=== PATIENT | female | born 1980 | race Caucasian/White ===

== ENCOUNTER → 2019-07-18 09:54 | Outpatient (BNVA) | payer OTHER, SELFPAY | PROVIDERS: Family Provider Nurse Practitioner Family; Referring Provider Nurse Practitioner Family; Visit Provider Internal Medicine Rheumatology | DX: M06.00 Rheumatoid arthritis without rheumatoid factor, unspecified site (principal); Z79.899 Other long term (current) drug therapy; Z79.52 Long term (current) use of systemic steroids; D50.9 Iron deficiency anemia, unspecified | CPT/HCPCS: 99214 ==

== ENCOUNTER → 2019-07-18 11:16 | Outpatient (BNVA) | payer OTHER, SELFPAY | PROVIDERS: Family Provider Nurse Practitioner Family; Referring Provider Nurse Practitioner Family; Visit Provider Internal Medicine Rheumatology | DX: Z79.899 Other long term (current) drug therapy (principal); M19.90 Unspecified osteoarthritis, unspecified site; Z79.52 Long term (current) use of systemic steroids | CPT/HCPCS: 85025 ==

== ENCOUNTER 2019-07-18 11:41 | Outpatient (CLI) | payer OTHER, SELFPAY ==
--- NOTE | 2019-07-18 11:54 | XR_ITS ---
WS: [id number] PROCEDURE: XR chest 2V* 20357 CLINICAL INFORMATION: inflammatory arthritis COMPARISON: None. FINDINGS: Heart: Normal cardiac silhouette. Lungs: Lungs are clear. No consolidation or pleural fluid. Bones: Normal visualized bony structures. Cholecystectomy clips. XR/XR chest 2V* 10327 IMPRESSION: Normal chest
== END 2019-07-18 11:42 | disposition home or self-care (01) ==
LOC: RADOUTREAD 11:47
PROVIDERS: Family Provider Nurse Practitioner Family; PCP Nurse Practitioner Family; Visit Provider Internal Medicine Rheumatology
DX: M19.90 Unspecified osteoarthritis, unspecified site (principal); Z79.899 Other long term (current) drug therapy
CPT/HCPCS: 36415; 71046; 80061; 80076; 82306; 82565; 85651; 86140

== ENCOUNTER → 2019-07-25 08:43 | Outpatient (BNVA) | payer OTHER, SELFPAY | PROVIDERS: Family Provider Nurse Practitioner Family; PCP Nurse Practitioner Family; Visit Provider Internal Medicine Rheumatology | DX: M19.90 Unspecified osteoarthritis, unspecified site (principal); Z11.1 Encounter for screening for respiratory tuberculosis; Z11.59 Encounter for screening for other viral diseases; Z79.899 Other long term (current) drug therapy; L40.50 Arthropathic psoriasis, unspecified | CPT/HCPCS: 36415; 86480; 86704; 86803; 87340 ==

== ENCOUNTER → 2019-08-02 13:05 | Outpatient (BNVA) | payer OTHER, SELFPAY | PROVIDERS: Family Provider Nurse Practitioner Family; PCP Internal Medicine Rheumatology; Visit Provider Internal Medicine Rheumatology | DX: R76.8 Other specified abnormal immunological findings in serum (principal); Z11.59 Encounter for screening for other viral diseases | CPT/HCPCS: 36415; 86803; 87902 ==

== ENCOUNTER → 2019-10-19 10:31 | Outpatient (BNVA) | payer OTHER, SELFPAY | PROVIDERS: Family Provider Nurse Practitioner Family; PCP Internal Medicine Rheumatology; Visit Provider Internal Medicine Rheumatology | DX: M19.90 Unspecified osteoarthritis, unspecified site (principal); Z79.899 Other long term (current) drug therapy; D50.0 Iron deficiency anemia secondary to blood loss (chronic); R76.8 Other specified abnormal immunological findings in serum; Z79.52 Long term (current) use of systemic steroids | CPT/HCPCS: 36415; 80076; 82565; 85025; 85651; 86140 ==

== ENCOUNTER → 2019-12-08 11:16 | Outpatient (BNVA) | payer OTHER, SELFPAY | PROVIDERS: Family Provider Nurse Practitioner Family; PCP Internal Medicine Rheumatology; Visit Provider Internal Medicine Rheumatology | DX: M19.90 Unspecified osteoarthritis, unspecified site (principal); Z79.899 Other long term (current) drug therapy | CPT/HCPCS: 36415; 80076; 82565; 85025; 85651; 86140 ==

== ENCOUNTER → 2020-01-04 14:52 | Outpatient (BNVA) | payer OTHER, SELFPAY | PROVIDERS: Family Provider Nurse Practitioner Family; PCP Internal Medicine Rheumatology; Visit Provider Internal Medicine Rheumatology | DX: M05.9 Rheumatoid arthritis with rheumatoid factor, unspecified (principal); R76.8 Other specified abnormal immunological findings in serum; Z79.52 Long term (current) use of systemic steroids; Z71.89 Other specified counseling; Z79.899 Other long term (current) drug therapy | CPT/HCPCS: 99214 ==

== ENCOUNTER → 2020-03-29 12:47 | Outpatient (BNVA) | payer OTHER, SELFPAY | PROVIDERS: Family Provider Nurse Practitioner Family; PCP Internal Medicine Rheumatology; Visit Provider Internal Medicine Rheumatology | DX: Z79.899 Other long term (current) drug therapy (principal) | CPT/HCPCS: 36415; 80076; 82565; 85025; 85651; 86140 ==

== ENCOUNTER → 2020-04-05 13:06 | Outpatient (BNVA) | payer OTHER, SELFPAY | PROVIDERS: Family Provider Nurse Practitioner Family; PCP Internal Medicine Rheumatology; Visit Provider Internal Medicine Rheumatology | DX: M19.90 Unspecified osteoarthritis, unspecified site (principal); R76.8 Other specified abnormal immunological findings in serum; Z79.52 Long term (current) use of systemic steroids; Z79.899 Other long term (current) drug therapy; D50.9 Iron deficiency anemia, unspecified | CPT/HCPCS: 99214 ==

== ENCOUNTER → 2020-05-11 09:32 | Outpatient (BNVA) | payer OTHER, SELFPAY | PROVIDERS: Family Provider Nurse Practitioner Family; PCP Internal Medicine Rheumatology | DX: Z79.899 Other long term (current) drug therapy (principal) | CPT/HCPCS: 36415; 80076; 82565; 85025; 85651; 86140 ==

== ENCOUNTER → 2020-09-13 11:55 | Outpatient (BNVA) | payer OTHER, SELFPAY | PROVIDERS: Family Provider Nurse Practitioner Family; PCP Nurse Practitioner Family; Visit Provider Internal Medicine Rheumatology | DX: R76.8 Other specified abnormal immunological findings in serum (principal); M19.90 Unspecified osteoarthritis, unspecified site; Z79.899 Other long term (current) drug therapy; Z79.52 Long term (current) use of systemic steroids; Z87.891 Personal history of nicotine dependence | CPT/HCPCS: 99214 ==

== ENCOUNTER → 2020-12-03 10:56 | Outpatient (BNVA) | payer OTHER, SELFPAY | PROVIDERS: Family Provider Nurse Practitioner Family; PCP Nurse Practitioner Family; Visit Provider Internal Medicine Rheumatology | DX: M19.90 Unspecified osteoarthritis, unspecified site (principal); Z79.899 Other long term (current) drug therapy | CPT/HCPCS: 36415; 80076; 82565; 85025; 86140 ==

== ENCOUNTER → 2020-12-17 10:47 | Outpatient (BNVA) | payer OTHER, SELFPAY | PROVIDERS: Family Provider Nurse Practitioner Family; PCP Nurse Practitioner Family; Visit Provider Internal Medicine Rheumatology | DX: R76.8 Other specified abnormal immunological findings in serum (principal); M19.90 Unspecified osteoarthritis, unspecified site; Z79.899 Other long term (current) drug therapy; Z79.52 Long term (current) use of systemic steroids; Z87.891 Personal history of nicotine dependence | CPT/HCPCS: 99214 ==

== ENCOUNTER → 2021-02-20 10:41 | Outpatient (BNVA) | payer OTHER, SELFPAY | PROVIDERS: Family Provider Nurse Practitioner Family; PCP Nurse Practitioner Family; Visit Provider Internal Medicine | DX: M19.90 Unspecified osteoarthritis, unspecified site (principal); R76.8 Other specified abnormal immunological findings in serum; Z71.89 Other specified counseling; Z79.899 Other long term (current) drug therapy | CPT/HCPCS: 36415; 80076; 82565; 85025; 86140 ==

== ENCOUNTER → 2021-05-21 09:34 | Outpatient (BNVA) | payer OTHER, SELFPAY | PROVIDERS: Family Provider Nurse Practitioner Family; PCP Nurse Practitioner Family; Visit Provider Internal Medicine Rheumatology | DX: M19.90 Unspecified osteoarthritis, unspecified site (principal); Z79.899 Other long term (current) drug therapy; M06.09 Rheumatoid arthritis without rheumatoid factor, multiple sites | CPT/HCPCS: 36415; 80076; 82565; 85025; 86140 ==

== ENCOUNTER → 2021-05-23 15:01 | Outpatient (BNVA) | payer OTHER, SELFPAY | PROVIDERS: Family Provider Nurse Practitioner Family; PCP Nurse Practitioner Family; Referring Provider Nurse Practitioner Family; Visit Provider Obstetrics & Gynecology | DX: N93.9 Abnormal uterine and vaginal bleeding, unspecified (principal) | CPT/HCPCS: 83036; 83525; 84443; 88305 ==

== ENCOUNTER → 2021-06-03 08:13 | Outpatient (BNVA) | payer OTHER, SELFPAY | PROVIDERS: Family Provider Nurse Practitioner Family; PCP Nurse Practitioner Family; Visit Provider Obstetrics & Gynecology | DX: N85.8 Other specified noninflammatory disorders of uterus (principal); N85.2 Hypertrophy of uterus | CPT/HCPCS: 76830 ==

== ENCOUNTER 2021-12-03 13:57 | Observation (INO) | payer OTHER, SELFPAY ==
[2021-12-02 12:08] VITALS: BMI 40.3
[2021-12-03] VITALS (23 sets, daily range): BP systolic 115–165; BP diastolic 72–97; PULSE 63–85; RESP 15–19; TEMP 36.1–37.2; O2SAT 90–99
[2021-12-03] MEDS: phenazopyridine 100 mg Tablet 200 MG PO ×3 (09:39→21:03)
[2021-12-03] MEDS: acetaminophen 1,000 MG/100 ML PIGGYBACK 400 MG IV (09:40)
[2021-12-03] MEDS: sodium chloride 0.9% 1,000 ML 30 ML IV (09:40)
[2021-12-03] MEDS: gabapentin 300 mg Capsule PO (09:45)
[2021-12-03] MEDS: scopolamine 1.5 Patch 1 PATCH TRANSDERMA (09:46)
--- NOTE | 2021-12-03 09:48 | ANES.PREANE2 ---
Pre-Anesthetic Assessment Height/Weight: Height 1.63 m Weight 106.594 kg Temp Pulse Resp BP Pulse Ox 97 F L 79 16 151/95 99 12/03/21 08:51 12/03/21 08:51 12/03/21 08:51 12/03/21 08:51 12/03/21 08:51 Preop Diagnosis: AUB, uterine leiomyoma Operation Date: 12/03/21 10:00 Proposed Procedures p Laparoscopic Assist Vaginal Hysterectomy 85600/D25.9(Not Applicable) - Prema Berry MD s Laparoscopic Salpingectomy(Bilateral) - Prema Berry MD Familial anesthetic complications: None Was Beta Carol taken within 24 hours: N/A Was Clonidine taken within 24 hours: N/A Last intake: Intake Last Liquid Date 12/02/21 Last Liquid Time 21:30 Last Solid Date 12/02/21 Last Solid Time 18:30 Social No alcohol and No tobacco Exam alert, oriented x 3, clear to auscultation bilaterally and regular rate & rhythm Airway Mallampati: Class I Dentition: full Pulmonary Asthma (hasn't required inhalers for 6 months) CV/HEM Hypertension GI Gastroesophageal Reflux Disease Metabolic hx adeola's Musc/skel inflammatory arthritis Neuropsych None reported Anesthetic Plan ASA status: 2 Anesthesia: General Risk of > 500 ml blood loss (7ml/kg in children): No Medications/Allergies Home Medications Medication Instructions Recorded Confirmed Last Taken Type montelukast 10 mg tablet 10 mg PO QDAY 07/15/19 12/03/21 12/02/21 History fexofenadine 60 mg tablet (Allergy 60 mg PO BID PRN 01/04/20 12/03/21 12/02/21 History Relief (fexofenadine)) fluticasone 100 mcg-salmeterol 50 1 inh INHALATION DAILY PRN each 01/04/20 12/03/21 05/22/21 History mcg/dose blistr powdr for inhalation (Advair Diskus) prednisone 10 mg tablet See Rx Instructions PO .COMPLEX 05/21/21 12/03/21 2 Months Ago Rx PRN #30 tab ~10/03/21 [id number] 18 mg-FA 400 1 tab PO DAILY 05/23/21 12/03/21 12/02/21 History mcg-calcium 500 mg-vit K 50 mcg tablet (Women's Multivitamin) norethindrone 1 mg-ethinyl 1 tab PO DAILY 05/23/21 12/03/21 12/02/21 History estradiol 35 mcg tablet (Nortrel) omega-3 fatty acids 1,000 mg 1,000 mg PO DAILY 05/23/21 12/03/21 12/02/21 History capsule (Fish Oil Concentrate) cholecalciferol (vitamin D3) 50 50 mcg PO DAILY #30 cap 06/26/21 12/03/21 12/02/21 Rx mcg (2,000 unit) capsule hydroxychloroquine 200 mg tablet 200 mg PO BID #180 tab 06/26/21 12/03/21 12/02/21 Rx methotrexate sodium 2.5 mg tablet See Rx Instructions PO .week 90 06/26/21 12/03/21 11/28/21 Rx Days #120 tab omeprazole 40 mg capsule,delayed 40 mg PO QDAY #90 cap 06/26/21 12/03/21 12/02/21 Rx release prednisone 5 mg tablet 5 mg PO DAILY #90 tab 06/26/21 12/03/21 12/02/21 Rx lisinopril 20 mg tablet 20 mg PO QDAY tab 07/22/21 12/03/21 12/02/21 History folic acid 1 mg tablet 1 mg PO DAILY #90 tab 08/19/21 12/03/21 12/02/21 Rx nitrofurantoin 100 mg PO DAILY 12/02/21 12/03/21 12/02/21 History monohydrate/macrocrystals 100 mg capsule (Macrobid) albuterol sulfate 90 mcg/actuation 1 inh INHALATION QID PRN 12/03/21 12/03/21 05/22/21 History aerosol inhaler Allergies Allergy/AdvReac Type Severity Reaction Status Date / Time aspirin Allergy Intermediate hearing Verified 12/03/21 09:00 loss meloxicam Allergy hives Verified 12/03/21 09:00 sulfamethoxazole Allergy itching Verified 12/03/21 09:00 [From Bactrim] trimethoprim [From Bactrim] Allergy itching Verified 12/03/21 09:00 Current Medications Generic Name Dose Route Start Last Admin Trade Name Freq PRN Reason Stop Dose Admin Sodium Chloride 1,000 mls @ 30 mls/hr 12/03/21 08:45 12/03/21 09:40 Sodium Chloride 0.9% IV 12/04/21 08:44 30 mls/hr .Q24H CARMENCITA Administration PFSH Anesthesia Medical History Alopecia Carpal tunnel syndrome Current chronic use of systemic steroids Dyslipidemia Elevated antinuclear antibody (ARACELIS) level Encounter for screening for other viral diseases Essential hypertension GERD (gastroesophageal reflux disease) Adeola's disease High risk medication use Hyperlipidemia Immunization counseling Inflammatory arthritis Iron deficiency anemia Radiculopathy of lumbosacral region Regional enteritis of small intestine Seasonal allergic rhinitis Type 2 diabetes mellitus Undifferentiated connective tissue disease Urinary incontinence Vitamin D deficiency Surgical History H/O tubal ligation 2002 History of cholecystectomy History of tonsillectomy No history of previous surgery Family History Mother COPD (chronic obstructive pulmonary disease) Diabetes Grandfather Cancer Paternal-bone cancer Grandfather Cancer Maternal-prostate cancer Father Chronic kidney disease (CKD) Diabetes Hyperlipidemia Hypertension Denies family history of CAD (coronary artery disease) Clotting disorder Bleeding disorder Thyroid disease Stroke Female Reproductive History Date of last menstrual period: 11/16/21 Data Anesthesia : 12/03/21 09:20 12/03/21 09:20 Cardiac Studies: No Data to Display
[2021-12-03 09:57] LABS: Basophils # 0.1 10^3/uL (0.0-0.1); Basophils % 0.6 %; Eosinophils # 0.3 10^3/uL (0.0-0.8); Eosinophils % 3.4 %; Hematocrit 37.6 % (37.0-47.0); Lymphocytes % 23.9 %; Mean Corpuscular HGB Conc 34.6 g/dL (30.0-36.0); Mean Corpuscular Hemoglobin 33.2 pg (28.0-34.0); Mean Corpuscular Volume 96.2 fl (81-99); Mean Platelet Volume 10.6 fL (7.4-10.4); Monocytes # 0.5 10^3/uL (0.2-0.9); Monocytes % 6.3 %; Neutrophils # 5.38 10^3/uL (1.8-7.7); Neutrophils % 65.7 %; Nucleated Red Blood Cells % 0 %; Platelet Count 286 10^3/cmm (130-400); Red Blood Count 3.91 10^6/uL (4.1-5.3); White Blood Count 8.2 10^3/uL (4.0-10.0)
[2021-12-03 10:05] LABS: OR HCG Qualitative Urine Negative (Negative)
--- NOTE | 2021-12-03 10:10 | W.PM.OPSUD ---
Surgery/Procedure H&P Update DATE OF PROCEDURE: December 03, 2021 DATE H&P PERFORMED: 11/27/21 H&P UPDATE INFORMATION: I have reviewed H&P completed within last 30 days, I have examined patient prior to procedure and No changes to prior documentation PREOP DIAGNOSIS: AUB, uterine leiomyoma PLANNED PROCEDURE: Operation Date: 12/03/21 10:00 Proposed Procedures p Laparoscopic Assist Vaginal Hysterectomy 17800/D25.9(Not Applicable) - Prema Berry MD s Laparoscopic Salpingectomy(Bilateral) - Prema Berry MD Related Problem List Diagnoses (1) Uterine leiomyoma: (2) Abnormal uterine bleeding (AUB):
[2021-12-03 10:15] LABS: Anion Gap 16.3 (5-19); Blood Urea Nitrogen 13 mg/dL (6-20); Calcium 8.5 mg/dL (8.5-10.5); Carbon Dioxide 24 mmol/L (22-29); Chloride 104 mmol/L (98-107); Glomerular Filtration Rate 91.3 mL/min (90-130); Glucose 91 mg/dL (65-115); Osmolality Calculated 292 mOsm/kg (285-295); Potassium 3.3 mmol/L (3.5-5.1); Sodium 141 mmol/L (136-145)
[2021-12-03] MEDS: vasopressin 20 unit/mL INJ INJECTION (11:11)
--- NOTE | 2021-12-03 12:54 | P.OP_ITS ---
Operative Report Date of procedure: December 03, 2021 Pre-op diagnosis: Preop Diagnosis AUB, uterine leiomyoma Post-op diagnosis: same Post-op findings: Enlarged uterus with one large anterior fibroid. Normal appearing tubes and ovaries Procedure done: LAVH, bilateral salpingectomy Specimens removed/disposition: uterus, bilateral fallopian tubes to pathology Surgeon: Prema Berry Anesthesia: General Estimated blood loss (mL): 400 IV fluids (mL): 100 Urine output (mL): 800 Complications: none Findings: 10 week sized fibroid uterus, normal appearing tubes and ovaries Procedure: The patient was taken to the operating room where general anesthesia was administered and found to be adequate. She was prepped and draped in the normal sterile fashion in the dorsal lithotomy position in [facility]. A Villasenor catheter was placed. A weighted speculum was placed into the vagina and the anterior lip of the cervix was grasped with a single tooth tenaculum. The Zumi uterine manipulator was placed. The weighted speculum was removed. The gloves were changed and attention was turned to the abdomen. A 5 mm Supraumbilical incision was made. Using a 5 mm port with the camera, the port was placed into the abdomen. The abdomen was insufflated. Two low, lateral 5 mm ports were placed on the left and right under direct visualization from the camera. The right tube was grasped and elevated. Using the laparoscopic cautery, the mesosalpinx was divided between the ovary and tube. The tube was removed. This was performed the same way on the left. The uteroovarian ligaments as well as the round ligaments were ligated. Attention was then turned to the vaginal portion of the procedure. The weighted speculum was placed into the vagina. The zumi manipulator was removed. The single tooth tenaculum was removed and replaced with the michelle's tenaculum. 10 mL of dilute Pitressin was injected at the vesicovaginal junction. A circumferential incision was made at the vesicovaginal junction and the vaginal mucosa reflected cephalad. The posterior peritoneum was entered sharply with the Metzenbaum scissors and the long weighted speculum replaced. Using the Joana clamps the uterosacral ligaments were clamped cut and suture- ligated. The anterior peritoneum was entered sharply with the metzenbaum scissors. Then sequentially the uterine arteries and cardinal ligaments were clamped cut and suture-ligated. A single-tooth tenaculum was used to deliver the uterus. The remaining segement of the utero-ovarian ligaments were clamped cut and suture-ligated bilaterally and the specimen was removed. There was good hemostasis with only mild bleeding from the cuff. The peritoneum was closed with a pursestring using 2-0 Vicryl. The vaginal cuff was closed with 0 Vicryl in a running locked pattern incorporating the uterosacral ligaments into the lateral aspects of the vaginal cuff. The Villasenor catheter was removed and the cystoscope advanced into the bladder. The patient was given pyridium and bilateral spill was noted. There were no injuries or deficits noted in the bladder. The cystoscope was removed and the Villasenor was replaced. Vaginal packing was placed for good hemostasis. The gloves and gowns were changed and attention was turned to the abdomen. The ports were closed with 2-0 monocryl with skin glue. The patient tolerated the procedure well. Sponge lap and needle counts were correct x3. She was taken to the recovery room in stable condition.
[2021-12-03] MEDS: HYDROmorphone 1 mg/mL INJ 1 mL 0.5 MG IVP (13:31)
[2021-12-03] MEDS: dextrose 5%-lactated ringers 1,000 ML 125 ML IV ×2 (14:34→23:43)
[2021-12-03] MEDS: ketorolac 30 mg/mL INJ IVP ×2 (14:35→21:03)
[2021-12-03] MEDS: HYDROcodone-acetaminophen 5-325 mg Tablet PO ×2 (15:19→23:48)
[2021-12-03] MEDS: HYDROmorphone 1 mg/mL INJ 1 mL 1.5 MG IVP (18:06)
[2021-12-03] MEDS: docusate sodium 100 mg Capsule PO (18:11)
[2021-12-03] MEDS: hydroxychloroquine 200 mg Tablet PO (18:14)
[2021-12-04 00:40] VITALS: BP 115/82; PULSE 62; RESP 14; TEMP 36.9; O2SAT 94
[2021-12-04] MEDS: ketorolac 30 mg/mL INJ IVP (02:31)
[2021-12-04] MEDS: HYDROcodone-acetaminophen 5-325 mg Tablet PO (04:59)
[2021-12-04 05:13] LABS: Hematocrit 29.9 % (37.0-47.0); Hemoglobin 10.5 g/dL (11.5-15.3); Mean Corpuscular HGB Conc 35.1 g/dL (30.0-36.0); Mean Corpuscular Hemoglobin 33.8 pg (28.0-34.0); Mean Corpuscular Volume 96.1 fl (81-99); Mean Platelet Volume 10.5 fL (7.4-10.4); Platelet Count 257 10^3/cmm (130-400); Red Blood Count 3.11 10^6/uL (4.1-5.3); Red Cell Distribution Width 12.7 % (12.1-15.1); White Blood Count 10.1 10^3/uL (4.0-10.0)
[2021-12-04 06:38] VITALS: BP 120/77; PULSE 72; RESP 16; O2SAT 95
[2021-12-04 10:16] VITALS: BP 120/77; PULSE 72; RESP 16; O2SAT 95
--- NOTE | 2021-12-04 17:07 | ANE.PACU2 ---
Inpatient post-anesthesia follow up: Airway intact: Yes Vital signs: Temperature 98.4 F Pulse Rate 72 Respiratory Rate 16 Blood Pressure 120/77 Pulse Oximetry 95 Oxygen Delivery Me thod Room Air Oxygen Flow Rate 3 Fraction of Inspir ed Oxygen Hydration adequate: Yes Nausea and vomiting: No Pain level: 1 Mental status: Baseline
--- NOTE | 2021-12-05 12:44 | P.DS_ITS ---
Discharge Providers Date of Admission: 12/03/21 13:57 Date of Discharge: December 04, 2021 Attending Provider at Admission: Prema Berry MD Attending Provider at Discharge: Prema Berry MD Primary Care Provider: Ayde Yo Diagnoses at Discharge Discharge Diagnosis (1) Uterine leiomyoma: Status: Resolved (2) Abnormal uterine bleeding (AUB): Status: Resolved Hospital Course Hospital Course The patient was admitted for surgery. She did well postoperatively and was ready for discharge. Physical Exam Narrative: The patient is doing well. No concerns today. Villasenor and packing has been removed. Const: COMMON NORMALS: no acute distress, patient oriented x3, no limitations, alert and well nourished GENERAL APPEARANCE: cooperative, comfortable, well kempt and well developed ORIENTATION/CONSCIOUSNESS: Yes awake, Yes oriented to person, Yes oriented to place and Yes oriented to time Resp: COMMON NORMALS: normal respiratory effort EFFORT & INSPECTION: Yes able to speak in complete sentences GI: COMMON NORMALS: Soft to palpation and non-tender PALPATION: Yes Soft to palpation Extremity: COMMON NORMALS: no calf tenderness Neuro: COMMON NORMALS: patient oriented x3 SENSORIUM/ORIENTATION: Yes alert, Yes oriented to person, Yes oriented to place and Yes oriented to time Psych: COMMON NORMALS: mental status grossly normal, Normal thought process present, cooperative, normal affect and speech normal APPEARANCE: Yes grossly normal and Yes well kempt ATTITUDE: Yes calm and Yes engaged SPEECH: Yes normal speech THOUGHT PROCESS: Normal thought process present Urinary Catheter Management: Villasenor: Cath Placed During This Visit: yes, but has since been removed by the nurse Reason for Continuing Indwelling Catheter: Perioperative Use in Selected Surgeries Urinary Catheter Date of Insertion: 12/03/21 Urinary Catheter Time of Insertion: 10:54 Date Urinary Catheter Removed: 12/04/21 Time Urinary Catheter Discontinued: 05:10 Discharge Data Studies Completed and Pending Pending at discharge Category Date Time Status Pathology: Surgical [PTH] Routine Pth 12/03/21 13:04 Received Laboratory Results WBC 10.1 10^3/uL (4.0-10.0) H 12/04/21 05:03 RBC 3.11 10^6/uL (4.1-5.3) L 12/04/21 05:03 Hgb 10.5 g/dL (11.5-15.3) L 12/04/21 05:03 Hct 29.9 % (37.0-47.0) L 12/04/21 05:03 MCV 96.1 fl (81-99) 12/04/21 05:03 MCH 33.8 pg (28.0-34.0) 12/04/21 05:03 MCHC 35.1 g/dL (30.0-36.0) 12/04/21 05:03 RDW 12.7 % (12.1-15.1) 12/04/21 05:03 Plt Count 257 10^3/cmm (130-400) 12/04/21 05:03 MPV 10.5 fL (7.4-10.4) H 12/04/21 05:03 Neut % (Auto) 65.7 % 12/03/21 09:20 Lymph % (Auto) 23.9 % 12/03/21 09:20 [place] % (Auto) 6.3 % 12/03/21 09:20 Eos % (Auto) 3.4 % 12/03/21 09:20 Baso % (Auto) 0.6 % 12/03/21 09:20 Neut # (Auto) 5.38 10^3/uL (1.8-7.7) 12/03/21 09:20 Lymph # (Auto) 2.0 10^3/uL (0.8-4.8) 12/03/21 09:20 [place] # (Auto) 0.5 10^3/uL (0.2-0.9) 12/03/21 09:20 Eos # (Auto) 0.3 10^3/uL (0.0-0.8) 12/03/21 09:20 Baso # (Auto) 0.1 10^3/uL (0.0-0.1) 12/03/21 09:20 Nucleated RBC % (auto) 0 % 12/03/21 09:20 Nucleated RBCs # 0.0 /100WBC 12/03/21 09:20 Sodium 141 mmol/L (136-145) 12/03/21 09:20 Potassium 3.3 mmol/L (3.5-5.1) L 12/03/21 09:20 Chloride 104 mmol/L (98-107) 12/03/21 09:20 Carbon Dioxide 24 mmol/L (22-29) 12/03/21 09:20 Anion Gap 16.3 (5-19) 12/03/21 09:20 BUN 13 mg/dL (6-20) 12/03/21 09:20 Creatinine 0.7 mg/dL (0.5-0.9) 12/03/21 09:20 GFR Calculation 91.3 mL/min (90-130) 12/03/21 09:20 Glucose 91 mg/dL (65-115) 12/03/21 09:20 Calculated Osmolality 292 mOsm/kg (285-295) 12/03/21 09:20 Calcium 8.5 mg/dL (8.5-10.5) 12/03/21 09:20 Urine HCG, Qual Negative (Negative) 12/03/21 09:07 Blood Type O Positive 12/03/21 09:20 Rho(D) Type Positive 12/03/21 09:20 Antibody Screen Negative 12/03/21 09:20 Vitals Last Vital Signs Temp 98.4 F 12/04/21 00:40 Pulse 72 12/04/21 10:16 Resp 16 12/04/21 10:16 BP 120/77 12/04/21 10:16 Pulse Ox 95 12/04/21 10:16 Discharge Plan Discharge Patient Disposition: Home Condition: Stable Prescriptions: New ibuprofen 800 mg Tablet 800 mg PO Q8H Qty: 30 0RF hydrocodone-acetaminophen 5-325 mg Tablet 1 tab PO Q4H PRN (Reason: Moderate To Severe Pain) Qty: 30 0RF docusate sodium 100 mg Capsule 100 mg PO BID Qty: 60 0RF Continued montelukast 10 mg tablet 10 mg PO QDAY 0RF lisinopril 20 mg tablet 20 mg PO QDAY 0RF fluticasone propion-salmeterol [Advair Diskus] 100-50 mcg/dose blister with device 1 inh INHALATION DAILY PRN (Reason: Shortness Of Breath) 0RF fexofenadine [Allergy Relief (fexofenadine)] 60 mg tablet 60 mg PO BID PRN (Reason: allergies) 0RF cholecalciferol (vitamin D3) 50 mcg (2,000 unit) capsule 50 mcg PO DAILY Qty: 30 3RF methotrexate sodium 2.5 mg tablet See Rx Instructions PO .week 90 Days Qty: 120 0RF Rx Instructions: 8 tabs of 2.5 mg PO once a week ( take 4 tabs in the AM and 4 tabs in the PM on ) hydroxychloroquine 200 mg tablet 200 mg PO BID Qty: 180 1RF omeprazole 40 mg capsule,delayed release(DR/EC) 40 mg PO QDAY Qty: 90 1RF prednisone 5 mg tablet 5 mg PO DAILY Qty: 90 1RF prednisone 10 mg tablet See Rx Instructions PO .COMPLEX PRN (Reason: joint pain) Qty: 30 1RF Rx Instructions: 1 tab daily for 7 days or as needed for flares PO PRN; Nortrel (28) 1-35 mg-mcg tablet 1 tab PO DAILY 0RF Women's Multivitamin 18 mg-400 mcg- 500 mg-50 mcg tablet 1 tab PO DAILY 0RF omega-3 fatty acids [Fish Oil Concentrate] 1,000 mg capsule 1,000 mg PO DAILY 0RF folic acid 1 mg tablet 1 mg PO DAILY Qty: 90 3RF nitrofurantoin monohyd/m-cryst [Macrobid] 100 mg Capsule 100 mg PO DAILY 0RF albuterol sulfate 90 mcg/actuation Hfa Aerosol Inhaler 1 inh INHALATION QID PRN (Reason: Shortness Of Breath) 0RF Discharge Orders: Discharge Order (Routine); Ordered 12/04/21 Ordered By: Prema Berry Referrals: Prema Berry MD [Physician] - 12/12/21 10:15 am (1 week post-op: 12/12/21 @10:15. 6 week post-op: 01/13/22 @8:30. ) Patient Instructions: Salpingectomy (DC), Laparoscopic Hysterectomy (DC), OB Discharge Report, OB Food/Drug Interaction Guide, Opioid Safety Discharge Attestations Time Spent in Discharge Care*: less than 30 min Quality Metrics Clinical Quality Measures [ No reported AMI, CVA or VTE this stay] Coding Level of Care Code Acute Chg FW DC note Diagnoses Uterine leiomyoma D25.9 Abnormal uterine bleeding (AUB) N93.9
== END 2021-12-04 09:25 | disposition home or self-care (01) ==
LOC: OBGYN 13:57
PROVIDERS: Anesthesiology; Admitting Provider Obstetrics & Gynecology; PCP Nurse Practitioner Family; Visit Provider Obstetrics & Gynecology
PROC: 0UT9FZZ Resection of Uterus, Via Natural or Artificial Opening With Percutaneous Endoscopic Assistance (ICD-10-PCS; CPT 58552; principal; 2021-12-03 10:00)
PROC: (CPT 58661; 2021-12-03 10:00)
DX: N93.9 Abnormal uterine and vaginal bleeding, unspecified (principal); D25.9 Leiomyoma of uterus, unspecified; E78.5 Hyperlipidemia, unspecified; E11.9 Type 2 diabetes mellitus without complications; E55.9 Vitamin D deficiency, unspecified
CPT/HCPCS: 58552; 36415; 51702; 80048; 81025; 84703; 85025; 85027; 86850; 86900; 87086; 88307; G0378; J1100; J1170; J1200; J1885; J2250; J2405; J2704; J2710; J3010; J3490; J7030

== ENCOUNTER 2022-01-13 09:32 | Outpatient (CLI) | payer OTHER, SELFPAY ==
[2022-01-13 10:28] LABS: Basophils # 0.1 10^3/uL (0.0-0.1); Basophils % 0.8 %; Eosinophils # 0.4 10^3/uL (0.0-0.8); Eosinophils % 4.5 %; Hematocrit 37.2 % (37.0-47.0); Hemoglobin 12.5 g/dL (11.5-15.3); Lymphocytes # 2.4 10^3/uL (0.8-4.8); Lymphocytes % 26.4 %; Mean Corpuscular HGB Conc 33.6 g/dL (30.0-36.0); Mean Corpuscular Hemoglobin 33.5 pg (28.0-34.0); Mean Corpuscular Volume 99.7 fl (81-99); Mean Platelet Volume 10.2 fL (7.4-10.4); Monocytes # 0.5 10^3/uL (0.2-0.9); Monocytes % 5.4 %; Neutrophils # 5.73 10^3/uL (1.8-7.7); Neutrophils % 62.6 %; Nucleated Red Blood Cells % 0 %; Platelet Count 339 10^3/cmm (130-400); Red Blood Count 3.73 10^6/uL (4.1-5.3); Red Cell Distribution Width 12.2 % (12.1-15.1); White Blood Count 9.1 10^3/uL (4.0-10.0)
[2022-01-13 11:08] LABS: Alanine Aminotransferase 35 U/L (0-33); Albumin Level 4.2 g/dL (3.5-5.2); Alkaline Phosphatase 64 IU/L (35-105); Aspartate Amino Transferase 18 U/L (0-32); C Reactive Protein 8.1 mg/L (0.0-4.9); Globulin 2.5 g/dL (1.3-4.6); Glomerular Filtration Rate 134.7 mL/min (90-130); Total Bilirubin 0.4 mg/dL (0.15-1.2); Total Protein 6.7 g/dL (6.6-8.7)
== END 2022-01-13 09:33 | disposition home or self-care (01) ==
PROVIDERS: PCP Nurse Practitioner Family; Visit Provider Internal Medicine Rheumatology
DX: M19.90 Unspecified osteoarthritis, unspecified site (principal); Z79.52 Long term (current) use of systemic steroids
CPT/HCPCS: 36415; 80076; 82565; 85025; 86140

== ENCOUNTER 2022-04-23 10:01 | Outpatient (CLI) | payer OTHER, SELFPAY ==
[2022-04-23 10:19] LABS: Basophils # 0.1 10^3/uL (0.0-0.1); Basophils % 0.8 %; Eosinophils # 0.4 10^3/uL (0.0-0.8); Eosinophils % 4.2 %; Hematocrit 37.5 % (37.0-47.0); Hemoglobin 12.6 g/dL (11.5-15.3); Lymphocytes # 2.3 10^3/uL (0.8-4.8); Lymphocytes % 27.8 %; Mean Corpuscular HGB Conc 33.6 g/dL (30.0-36.0); Mean Corpuscular Hemoglobin 33.3 pg (28.0-34.0); Mean Corpuscular Volume 99.2 fl (81-99); Mean Platelet Volume 9.5 fL (7.4-10.4); Monocytes # 0.6 10^3/uL (0.2-0.9); Monocytes % 7.7 %; Neutrophils # 4.92 10^3/uL (1.8-7.7); Neutrophils % 59.3 %; Nucleated Red Blood Cells % 0 %; Platelet Count 308 10^3/cmm (130-400); Red Blood Count 3.78 10^6/uL (4.1-5.3); Red Cell Distribution Width 12.9 % (12.1-15.1); White Blood Count 8.3 10^3/uL (4.0-10.0)
[2022-04-23 10:42] LABS: Alanine Aminotransferase 23 U/L (0-33); Albumin Level 4.4 g/dL (3.5-5.2); Alkaline Phosphatase 61 U/L (35-105); Aspartate Amino Transferase 15 U/L (0-32); C Reactive Protein 4.4 mg/L (0.0-4.9); Globulin 2.6 g/dL (1.3-4.6); Glomerular Filtration Rate 109.1 mL/min (90-130); Total Bilirubin 0.3 mg/dL (0.15-1.2)
== END 2022-04-23 10:02 | disposition home or self-care (01) ==
LOC: LAB 10:04
PROVIDERS: PCP Nurse Practitioner Family; Visit Provider Internal Medicine Rheumatology
DX: M19.90 Unspecified osteoarthritis, unspecified site (principal); Z79.899 Other long term (current) drug therapy
CPT/HCPCS: 80076; 82565; 85025; 86140

== ENCOUNTER 2022-08-11 10:31 | Outpatient (CLI) | payer OTHER, SELFPAY ==
[2022-08-11 11:32] LABS: Basophils # 0.1 10^3/uL (0.0-0.1); Basophils % 0.8 %; Eosinophils # 0.3 10^3/uL (0.0-0.8); Hematocrit 37.6 % (37.0-47.0); Hemoglobin 12.7 g/dL (11.5-15.3); Lymphocytes # 1.8 10^3/uL (0.8-4.8); Lymphocytes % 22.9 %; Mean Corpuscular HGB Conc 33.8 g/dL (30.0-36.0); Mean Corpuscular Hemoglobin 33.3 pg (28.0-34.0); Mean Corpuscular Volume 98.7 fl (81-99); Mean Platelet Volume 10.1 fL (7.4-10.4); Monocytes # 0.5 10^3/uL (0.2-0.9); Monocytes % 5.9 %; Neutrophils # 5.12 10^3/uL (1.8-7.7); Neutrophils % 66.1 %; Nucleated Red Blood Cells % 0 %; Platelet Count 333 10^3/cmm (130-400); Red Blood Count 3.81 10^6/uL (4.1-5.3); Red Cell Distribution Width 12.8 % (12.1-15.1); White Blood Count 7.7 10^3/uL (4.0-10.0)
[2022-08-11 11:59] LABS: Alanine Aminotransferase 18 U/L (0-33); Albumin Level 3.8 g/dL (3.5-5.2); Alkaline Phosphatase 77 U/L (35-105); Aspartate Amino Transferase 15 U/L (0-32); C Reactive Protein 4.7 mg/L (0.0-4.9); Globulin 2.7 g/dL (1.3-4.6); Glomerular Filtration Rate 108.6 mL/min (90-130); Total Bilirubin 0.4 mg/dL (0.15-1.2); Total Protein 6.5 g/dL (6.6-8.7)
== END 2022-08-11 10:32 | disposition home or self-care (01) ==
PROVIDERS: PCP Nurse Practitioner Family; Visit Provider Internal Medicine Rheumatology
DX: Z79.899 Other long term (current) drug therapy (principal); M19.90 Unspecified osteoarthritis, unspecified site; M79.7 Fibromyalgia; R76.8 Other specified abnormal immunological findings in serum
CPT/HCPCS: 36415; 80076; 82565; 85025; 86140

== ENCOUNTER → 2023-03-02 15:58 | Outpatient (BNVA) | payer OTHER, SELFPAY | PROVIDERS: PCP Nurse Practitioner Family; Visit Provider Internal Medicine Rheumatology | DX: Z79.899 Other long term (current) drug therapy (principal); M19.90 Unspecified osteoarthritis, unspecified site | CPT/HCPCS: 36415; 80076; 82565; 85025; 86140 ==

== ENCOUNTER 2023-06-05 11:09 | Outpatient (CLI) | payer OTHER, SELFPAY ==
[2023-06-05 11:23] LABS: Basophils # 0.1 10^3/uL (0.0-0.1); Basophils % 0.7 %; Eosinophils # 0.3 10^3/uL (0.0-0.8); Eosinophils % 3.5 %; Lymphocytes # 2.1 10^3/uL (0.8-4.8); Lymphocytes % 25.9 %; Mean Corpuscular HGB Conc 33.8 g/dL (30-55); Mean Corpuscular Hemoglobin 33.2 pg (27-33); Mean Corpuscular Volume 98.2 fl (85-98); Mean Platelet Volume 9.7 fL (7.4-10.4); Monocytes # 0.6 10^3/uL (0.2-0.9); Monocytes % 6.9 %; Neutrophils # 5.14 10^3/uL (1.8-7.7); Neutrophils % 62.8 %; Nucleated Red Blood Cells % 0 %; Platelet Count 297 10^3/cmm (157-399); Red Blood Count 3.97 10^6/uL (3.85-5.65); Red Cell Distribution Width 12.4 % (12.1-15.1); White Blood Count 8.21 10^3/uL (3.29-11.43)
[2023-06-05 11:38] LABS: Albumin Level 4.2 g/dL (3.5-5.2); Alkaline Phosphatase 73 U/L (35-105); Aspartate Amino Transferase 15 U/L (0-32); C Reactive Protein 7.4 mg/L (0.0-4.9); Globulin 2.9 g/dL (1.3-4.6); Glomerular Filtration Rate 90.9 mL/min (90-130); Total Bilirubin 0.3 mg/dL (0.15-1.2); Total Protein 7.1 g/dL (6.6-8.7)
[2023-06-05 11:49] LABS: Alanine Aminotransferase 18 U/L (0-33)
== END 2023-06-05 11:10 | disposition home or self-care (01) ==
LOC: LAB 11:10
PROVIDERS: PCP Nurse Practitioner Family; Visit Provider Internal Medicine Rheumatology
DX: M19.90 Unspecified osteoarthritis, unspecified site (principal); Z79.899 Other long term (current) drug therapy
CPT/HCPCS: 36415; 80076; 82565; 85025; 86140

== ENCOUNTER 2023-09-30 10:51 | Outpatient (CLI) | payer OTHER, SELFPAY ==
[2023-09-30 11:13] LABS: Basophils # 0.1 10^3/uL (0.0-0.1); Basophils % 1.1 %; Eosinophils # 0.3 10^3/uL (0.0-0.8); Eosinophils % 4.3 %; Lymphocytes # 1.7 10^3/uL (0.8-4.8); Lymphocytes % 27.4 %; Mean Corpuscular HGB Conc 34.6 g/dL (30-55); Mean Corpuscular Hemoglobin 33.5 pg (27-33); Mean Corpuscular Volume 96.8 fl (85-98); Mean Platelet Volume 9.8 fL (7.4-10.4); Monocytes # 0.5 10^3/uL (0.2-0.9); Monocytes % 7.9 %; Neutrophils # 3.67 10^3/uL (1.8-7.7); Nucleated Red Blood Cells % 0 %; Platelet Count 295 10^3/cmm (157-399); Red Blood Count 4.03 10^6/uL (3.85-5.65); Red Cell Distribution Width 12.3 % (12.1-15.1); White Blood Count 6.23 10^3/uL (3.29-11.43)
[2023-09-30 12:14] LABS: Alanine Aminotransferase 20 U/L (0-33); Albumin Level 4.2 g/dL (3.5-5.2); Alkaline Phosphatase 62 U/L (35-105); Aspartate Amino Transferase 15 U/L (0-32); C Reactive Protein 3.6 mg/L (0.0-4.9); Globulin 2.7 g/dL (1.3-4.6); Glomerular Filtration Rate 90.5 mL/min (90-130); Total Bilirubin 0.4 mg/dL (0.15-1.2); Total Protein 6.9 g/dL (6.6-8.7)
== END 2023-09-30 10:52 | disposition home or self-care (01) ==
LOC: LAB 10:53
PROVIDERS: PCP Nurse Practitioner Family; Visit Provider Internal Medicine Rheumatology
DX: Z79.899 Other long term (current) drug therapy (principal); M19.90 Unspecified osteoarthritis, unspecified site
CPT/HCPCS: 36415; 80076; 82565; 85025; 86140

== ENCOUNTER 2024-01-04 12:07 | Outpatient (CLI) | payer OTHER, SELFPAY ==
[2024-01-04 12:59] LABS: Basophils # 0.1 10^3/uL (0.0-0.1); Basophils % 0.7 %; Eosinophils # 0.3 10^3/uL (0.0-0.8); Hematocrit 37.8 % (36-47); Lymphocytes # 1.3 10^3/uL (0.8-4.8); Lymphocytes % 13.5 %; Mean Corpuscular HGB Conc 33.6 g/dL (30-55); Mean Corpuscular Hemoglobin 33.5 pg (27-33); Mean Corpuscular Volume 99.7 fl (85-98); Mean Platelet Volume 10.1 fL (7.4-10.4); Monocytes # 0.5 10^3/uL (0.2-0.9); Neutrophils # 7.27 10^3/uL (1.8-7.7); Neutrophils % 77.4 %; Nucleated Red Blood Cells % 0 %; Platelet Count 328 10^3/cmm (157-399); Red Blood Count 3.79 10^6/uL (3.85-5.65); Red Cell Distribution Width 12.9 % (12.1-15.1)
[2024-01-04 13:18] LABS: Alanine Aminotransferase 19 U/L (0-33); Albumin Level 4.1 g/dL (3.5-5.2); Alkaline Phosphatase 71 U/L (35-105); Aspartate Amino Transferase 17 U/L (0-32); C Reactive Protein 5.2 mg/L (0.0-4.9); Globulin 2.7 g/dL (1.3-4.6); Glomerular Filtration Rate 90.5 mL/min (90-130); Total Bilirubin 0.4 mg/dL (0.15-1.2); Total Protein 6.8 g/dL (6.6-8.7)
== END 2024-01-04 12:08 | disposition home or self-care (01) ==
LOC: LAB 12:08
PROVIDERS: PCP Nurse Practitioner Family; Visit Provider Internal Medicine Rheumatology
DX: Z79.899 Other long term (current) drug therapy (principal); M19.90 Unspecified osteoarthritis, unspecified site
CPT/HCPCS: 36415; 80076; 82565; 85025; 86140

== ENCOUNTER 2024-06-07 10:56 | Outpatient (CLI) | payer OTHER, SELFPAY ==
[2024-06-07 12:00] LABS: Basophils # 0.1 10^3/uL (0.0-0.1); Basophils % 0.6 %; Eosinophils # 0.3 10^3/uL (0.0-0.8); Eosinophils % 3.6 %; Hematocrit 37.8 % (36-47); Lymphocytes # 1.8 10^3/uL (0.8-4.8); Lymphocytes % 21.9 %; Mean Corpuscular HGB Conc 33.9 g/dL (30-55); Mean Corpuscular Hemoglobin 33.2 pg (27-33); Mean Corpuscular Volume 98.2 fl (85-98); Mean Platelet Volume 9.7 fL (7.4-10.4); Monocytes # 0.6 10^3/uL (0.2-0.9); Neutrophils # 5.32 10^3/uL (1.8-7.7); Neutrophils % 66.5 %; Nucleated Red Blood Cells % 0 %; Platelet Count 278 10^3/cmm (157-399); Red Blood Count 3.85 10^6/uL (3.85-5.65); Red Cell Distribution Width 12.2 % (12.1-15.1)
[2024-06-07 12:06] LABS: Erythrocyte Sedimentation Rate < 1 mm/hr (0-15)
[2024-06-07 12:20] LABS: Alanine Aminotransferase 16 U/L (0-33); Alkaline Phosphatase 56 U/L (35-105); Aspartate Amino Transferase 13 U/L (0-32); C Reactive Protein 6.6 mg/L (0.0-4.9); Globulin 2.8 g/dL (1.3-4.6); Glomerular Filtration Rate 108.1 mL/min (90-130); Total Bilirubin 0.5 mg/dL (0.15-1.2); Total Protein 6.8 g/dL (6.6-8.7)
== END 2024-06-07 10:57 | disposition home or self-care (01) ==
LOC: LAB 11:14
PROVIDERS: PCP Nurse Practitioner Family; Visit Provider Internal Medicine Rheumatology
DX: M79.7 Fibromyalgia (principal); Z79.899 Other long term (current) drug therapy; M06.00 Rheumatoid arthritis without rheumatoid factor, unspecified site
CPT/HCPCS: 36415; 80076; 82565; 85025; 85651; 86140

== ENCOUNTER → 2024-08-22 14:00 | Outpatient (BNVA) | payer OTHER, SELFPAY | PROVIDERS: PCP Nurse Practitioner Family; Visit Provider Internal Medicine Rheumatology | DX: Z79.899 Other long term (current) drug therapy (principal) | CPT/HCPCS: 36415; 80076; 82565; 85025; 85651; 86140 ==

== ENCOUNTER 2024-09-19 12:56 | Outpatient (CLI) | payer OTHER, SELFPAY ==
--- NOTE | 2024-09-19 13:03 | MM_ITS ---
WS: [id number] BILATERAL 3D TOMOSYNTHESIS DIGITAL SCREENING MAMMOGRAPHY WITH CAD CLINICAL INFORMATION: SCREENING HISTORY: Screening mammogram. Breast soreness COMPARISON: Baseline TECHNIQUE: Bilateral CC and MLO views. FINDINGS: Scattered fibroglandular densities bilaterally. No suspicious focal mass, asymmetry, calcifications, or architectural distortion. No evidence of malignancy. Incidental punctate and skin calcifications. MM/MM [facility] tomosynthesis [id number] IMPRESSION: DENSITY: There are scattered areas of fibroglandular density. BI-RADS: 2 - Benign. FOLLOW UP: 1 Year Follow-up Recommend return to annual screening mammography.
--- NOTE | 2024-09-19 13:03 | XR_ITS ---
WS: [id number] DEXA (DUAL ENERGY X-RAY ABSORPTIOMETRY) Bone mineral density was performed using a Solfo machine. HISTORY: LONGTERM USE OF STEROID COMPARISON: None available. Lumbar spine BMD (L1-L4): 1.309 g/cm2 T score: 1.1 Z score: 0.0 Total hip BMD: Left: 1.176 g/cm2. T score: 1.3 Z score: 0.8 Right: 1.162 g/cm2. T score: 1.2 Z score: 0.7 10 year probability of a major osteoporotic fracture is 3.6%. XR/XR DEXA axial skeleton* 92516 IMPRESSION: NORMAL BONE MINERAL DENSITY based upon the WHO classification for females.
== END 2024-09-19 12:57 | disposition home or self-care (01) ==
PROVIDERS: PCP Nurse Practitioner Family; Visit Provider Nurse Practitioner Family
DX: Z12.31 Encounter for screening mammogram for malignant neoplasm of breast (principal); Z79.52 Long term (current) use of systemic steroids; R92.323 Mammographic fibroglandular density, bilateral breasts; R92.1 Mammographic calcification found on diagnostic imaging of breast
CPT/HCPCS: 77063; 77067; 77080

== ENCOUNTER 2024-09-27 11:15 | Day surgery (SDC) | payer OTHER, SELFPAY ==
[2024-09-27 12:26] VITALS: BP 184/109; PULSE 97; RESP 16; TEMP 36.8; O2SAT 96; BMI 51.8
[2024-09-27] MEDS: sodium chloride 0.9% 1,000 ML 15 ML IV (12:38)
[2024-09-27] MEDS: famotidine 20 mg/2 mL INJ IVP (13:37)
--- NOTE | 2024-09-27 13:56 | ANES.PREANE2 ---
Pre-Anesthetic Assessment Height/Weight: Height 5 ft 4 in Weight 302 lb Temp Pulse Resp BP Pulse Ox O2 Del Method 98.2 F 97 16 184/109 96 Room Air 09/27/24 12:26 09/27/24 12:26 09/27/24 12:26 09/27/24 12:26 09/27/24 12:26 09/27/24 12:26 Preop Diagnosis: GERD Operation Date: 09/27/24 11:30 Proposed Procedures p EGD [id number] G0121 Z12.11 R12(Not Applicable) - Juventino Rodriguez MD s Colonoscopy(Not Applicable) - Juventino Rodriguez MD Was Beta Carol taken within 24 hours: N/A Was Clonidine taken within 24 hours: N/A Last intake: Intake Last Liquid Date 09/26/24 Last Liquid Time 23:45 Last Solid Date 09/25/24 Last Solid Time 19:00 Social No alcohol and No tobacco Exam alert, oriented x 3, clear to auscultation bilaterally and regular rate & rhythm Airway Submandibular: within normal limits Cervical ROM: within normal limits Mallampati: Class II Dentition: full Anesthetic Plan ASA status: 3 Anesthesia: MAC Other: Patient states that she is slow to wake up from anesthesia Completed bowel prep History of hypertension on lisinopril. Preop BP 184/109 WOOD, wears CPAP GERD on omeprazole Hep C positive Labs 08/22/2024 reviewed and acceptable for procedure Plan for MAC anesthesia Medications/Allergies Home Medications ?Medication ?Instructions ?Recorded ?Confirmed ?Last Taken ?Type montelukast 10 mg tablet 10 mg PO QDAY 07/15/19 09/27/24 09/26/24 History fexofenadine 60 mg tablet (Allergy 60 mg PO DAILY PRN allergies 01/04/20 09/27/24 09/26/24 History Relief (fexofenadine)) gyndtaqu-gda-jogy 18 mg-FA 400 1 tab PO DAILY 05/23/21 09/27/24 09/26/24 History mcg-calcium 500 mg-vit K 50 mcg tablet (Women's Multivitamin) omega-3 fatty acids 1,000 mg 1,000 mg PO DAILY 05/23/21 09/27/24 09/26/24 History capsule (Fish Oil Concentrate) cholecalciferol (vitamin D3) 50 50 mcg PO DAILY #30 caps 06/26/21 09/27/24 09/25/24 Rx mcg (2,000 unit) capsule lisinopril 20 mg tablet 20 mg PO QDAY 07/22/21 09/27/24 09/26/24 History nitrofurantoin 100 mg PO DAILY 12/02/21 09/27/24 09/26/24 History monohydrate/macrocrystals 100 mg capsule (Macrobid) albuterol sulfate 90 mcg/actuation 1 inh inhalation QID PRN Shortness 12/03/21 09/27/24 09/21/24 History aerosol inhaler Of Breath folic acid 1 mg tablet 1 mg PO DAILY #90 tabs 08/22/24 09/27/24 09/26/24 Rx gabapentin 300 mg capsule See Rx Instructions PO TID #90 caps 08/22/24 09/27/24 09/26/24 Rx hydroxychloroquine 200 mg tablet 200 mg PO BID #180 tabs 08/22/24 09/27/24 09/26/24 Rx methotrexate sodium 25 mg/mL 25 mg SUBCUT Q7D #10 mL 08/22/24 09/21/24 09/22/24 Rx injection solution omeprazole 40 mg capsule,delayed 40 mg PO QDAY #90 caps 08/22/24 09/27/24 09/26/24 Rx release prednisone 10 mg tablet See Rx Instructions PO .COMPLEX 08/22/24 09/27/24 09/21/24 Rx PRN joint pain #30 tabs syringe with needle 1 mL 25 gauge #50 ea 08/22/24 09/21/24 Unknown Rx x 5/8 (Monoject TB Safety Syringe) ondansetron 8 mg disintegrating 8 mg PO Q8H PRN nausea and 09/15/24 09/27/24 09/27/24 Rx tablet vomiting #3 tabs prednisone 5 mg tablet 5 mg PO DAILY 09/21/24 09/27/24 09/26/24 History Allergies Allergy/AdvReac Type Severity Reaction Status Date / Time aspirin Allergy Intermediate hearing Verified 09/27/24 12:24 loss sulfamethoxazole (From Allergy Intermediate itching Verified 09/27/24 12:24 Bactrim) trimethoprim (From Bactrim) Allergy Intermediate itching Verified 09/27/24 12:24 meloxicam Allergy Mild hives Verified 09/27/24 12:24 Current Medications Generic Name Dose Route Start Last Admin Trade Name Freq PRN Reason Stop Dose Admin Sodium Chloride 1,000 mls @ 15 mls/hr 09/27/24 11:32 09/27/24 12:38 Sodium Chloride 0.9% IV 09/28/24 11:31 15 mls/hr .Q24H PRN Administration COLONOSCOPY FLUIDS PFSH Anesthesia Medical History Fibromyalgia Marisa's disease Type 2 diabetes mellitus Vitamin D deficiency Dyslipidemia Hyperlipidemia Iron deficiency anemia Essential hypertension Seasonal allergic rhinitis GERD (gastroesophageal reflux disease) Regional enteritis of small intestine Alopecia Undifferentiated connective tissue disease Urinary incontinence Radiculopathy of lumbosacral region Encounter for screening for other viral diseases Immunization counseling Carpal tunnel syndrome Elevated antinuclear antibody (ARACELIS) level Inflammatory arthritis High risk medication use Current chronic use of systemic steroids Surgical History H/O tubal ligation 2002 History of cholecystectomy History of tonsillectomy No history of previous surgery Family History Mother COPD (chronic obstructive pulmonary disease) Diabetes Grandfather Cancer Paternal-bone cancer Grandfather Cancer Maternal-prostate cancer Father Chronic kidney disease (CKD) Diabetes Hyperlipidemia Hypertension Denies family history of CAD (coronary artery disease) Clotting disorder Bleeding disorder Thyroid disease Stroke Social History Smoking and tobacco/nicotine status: former use of tobacco/nicotine Substance/Drug Use: never Data Anesthesia Cardiac Studies: No Data to Display
--- NOTE | 2024-09-27 14:06 | W.PM.OPSUD ---
Surgery/Procedure H&P Update DATE OF PROCEDURE: September 27, 2024 DATE H&P PERFORMED: 09/15/24 H&P UPDATE INFORMATION: I have reviewed H&P completed within last 30 days, I have examined patient prior to procedure and No changes to prior documentation PREOP DIAGNOSIS: GERD PLANNED PROCEDURE: Operation Date: 09/27/24 11:30 Proposed Procedures p EGD [id number] G0121 Z12.11 R12(Not Applicable) - Juventino Rodriguez MD s Colonoscopy(Not Applicable) - Juventino Rodriguez MD
[2024-09-27 14:45] VITALS: BP 137/81; PULSE 99; RESP 18; TEMP 37; O2SAT 98
[2024-09-27 14:55] VITALS: BP 142/79; PULSE 91; RESP 18; O2SAT 96
== END 2024-09-27 15:19 | disposition home or self-care (01) ==
PROVIDERS: PCP Nurse Practitioner Family; Visit Provider Student in an Organized Health Care Education/Training Program
PROC: 0DJ08ZZ Inspection of Upper Intestinal Tract, Via Natural or Artificial Opening Endoscopic (ICD-10-PCS; principal; 2024-09-27 11:30)
PROC: 0DJD8ZZ Inspection of Lower Intestinal Tract, Via Natural or Artificial Opening Endoscopic (ICD-10-PCS; CPT 45378; 2024-09-27 11:30)
DX: Z12.11 Encounter for screening for malignant neoplasm of colon (principal); K29.50 Unspecified chronic gastritis without bleeding; K21.9 Gastro-esophageal reflux disease without esophagitis; B19.20 Unspecified viral hepatitis C without hepatic coma; E11.9 Type 2 diabetes mellitus without complications; E78.5 Hyperlipidemia, unspecified; G47.33 Obstructive sleep apnea (adult) (pediatric); I10 Essential (primary) hypertension; E06.3 Autoimmune thyroiditis; Z79.899 Other long term (current) drug therapy; Z79.52 Long term (current) use of systemic steroids; Z88.8 Allergy status to other drugs, medicaments and biological substances; Z88.2 Allergy status to sulfonamides; Z87.891 Personal history of nicotine dependence
CPT/HCPCS: 43239; 45378; 88305; 88342; J2704; J3490; J7030

== ENCOUNTER 2024-12-06 10:45 | Outpatient (CLI) | payer OTHER, SELFPAY ==
[2024-12-06 12:37] LABS: Basophils # 0.1 10^3/uL (0.0-0.1); Basophils % 0.6 %; Eosinophils # 0.3 10^3/uL (0.0-0.8); Eosinophils % 3.5 %; Hematocrit 39.9 % (36-47); Lymphocytes # 2.2 10^3/uL (0.8-4.8); Lymphocytes % 27.2 %; Mean Corpuscular HGB Conc 33.3 g/dL (30-55); Mean Corpuscular Hemoglobin 32.9 pg (27-33); Mean Corpuscular Volume 98.8 fl (85-98); Mean Platelet Volume 10.3 fL (7.4-10.4); Monocytes # 0.6 10^3/uL (0.2-0.9); Monocytes % 6.8 %; Neutrophils # 5.05 10^3/uL (1.8-7.7); Neutrophils % 61.5 %; Nucleated Red Blood Cells % 0 %; Platelet Count 306 10^3/cmm (157-399); Red Blood Count 4.04 10^6/uL (3.85-5.65); Red Cell Distribution Width 12.3 % (12.1-15.1); White Blood Count 8.21 10^3/uL (3.29-11.43)
[2024-12-06 13:01] LABS: Alanine Aminotransferase 18 U/L (0-33); Alkaline Phosphatase 78 U/L (35-105); Aspartate Amino Transferase 14 U/L (0-32); Bilirubin Direct 0.11 mg/dL (0.00-0.30); C Reactive Protein 6.5 mg/L (0.0-4.9); Globulin 2.7 g/dL (1.3-4.6); Glomerular Filtration Rate 107.6 mL/min (90-130); Total Bilirubin 0.2 mg/dL (0.15-1.2); Total Protein 6.7 g/dL (6.6-8.7)
[2024-12-06 13:08] LABS: Erythrocyte Sedimentation Rate 1 mm/hr (0-15)
== END 2024-12-06 10:46 | disposition home or self-care (01) ==
PROVIDERS: PCP Nurse Practitioner Family; Visit Provider Internal Medicine Rheumatology
DX: Z79.899 Other long term (current) drug therapy (principal)
CPT/HCPCS: 36415; 80076; 82565; 85025; 85651; 86140

== ENCOUNTER → 2025-03-02 14:10 | Outpatient (BNVA) | payer OTHER, SELFPAY | PROVIDERS: PCP Nurse Practitioner Family; Visit Provider Internal Medicine Rheumatology | DX: Z79.899 Other long term (current) drug therapy (principal) | CPT/HCPCS: 36415; 80076; 82306; 82565; 85025; 85651; 86140; 86480 ==

== ENCOUNTER 2025-06-06 10:22 | Outpatient (CLI) | payer OTHER, SELFPAY ==
[2025-06-06 11:20] LABS: Hematocrit 37.1 % (36-47); Hemoglobin 12.80 g/dL (11.27-16.99); Mean Corpuscular HGB Conc 34.5 g/dL (30-55); Mean Corpuscular Hemoglobin 33.7 pg (27-33); Mean Corpuscular Volume 97.6 fl (85-98); Nucleated Red Blood Cells % 0 %; Platelet Count 292 10^3/cmm (157-399); Red Blood Count 3.80 10^6/uL (3.85-5.65); White Blood Count 10.78 10^3/uL (3.29-11.43)
[2025-06-06 11:44] LABS: Alanine Aminotransferase 17 U/L (0-33); Albumin Level 4.2 g/dL (3.5-5.2); Alkaline Phosphatase 66 U/L (35-105); Aspartate Amino Transferase 14 U/L (0-32); Globulin 2.3 g/dL (1.3-4.6); Total Protein 6.5 g/dL (6.6-8.7)
== END 2025-06-06 10:23 | disposition home or self-care (01) ==
PROVIDERS: PCP Nurse Practitioner Family; Visit Provider Internal Medicine Rheumatology
DX: Z79.899 Other long term (current) drug therapy (principal)
CPT/HCPCS: 36415; 80076; 82565; 85025; 85651; 86140